=== PATIENT | female | born 1960 | race African-American/Black ===

== ENCOUNTER 2025-06-18 13:26 | Emergency (ER) | payer OTHER ==
[~2025-06-18] VITALS: Ht 162.6 cm; Wt 68.2 kg
[2025-06-18 13:29] VITALS: BP 126/83; TEMP 97.8
[2025-06-18] MEDS: ALBUTEROL SULFATE 2.5 MG/0.5 ML 5 ML NEB SOLUTION NEB ONE (13:45)
[2025-06-18] MEDS: IPRATROPIUM BROMIDE 0.5 MG/2.5 ML NEB SOLUTION NEB ONE (13:45)
[2025-06-18 13:48] VITALS: PULSE 78; RESP 20; O2SAT 99
[2025-06-18 14:02] VITALS: PULSE 88; RESP 20; O2SAT 100
[2025-06-18] MEDS ORDERED: BUDE10.27 IH (14:11)
[2025-06-18] MEDS ORDERED: PRED-554 PO (14:11)
[2025-06-18] MEDS ORDERED: NICO-575 PO (14:31)
== END 2025-06-18 14:47 | disposition home or self-care (01) ==
LOC: EMS 13:27
DX: J45.909 Unspecified asthma, uncomplicated (principal); Z98.51 Tubal ligation status; Z87.891 Personal history of nicotine dependence; Z88.0 Allergy status to penicillin; Z79.52 Long term (current) use of systemic steroids; Z79.51 Long term (current) use of inhaled steroids; Y93.01 Activity, walking, marching and hiking; Y92.828 Other wilderness area as the place of occurrence of the external cause
CPT/HCPCS: 99283; 94640; J7512